=== PATIENT | male | born 1970 | race Caucasian/White ===

== ENCOUNTER 2020-05-09 10:02 | Emergency (ER) | payer OTHER ==
[~2020-05-09] VITALS: Ht 175.3 cm; Wt 181.8 kg
[2020-05-09 10:18] VITALS: BP 116/95; Ht 175.3 cm; Wt 181.8 kg
[2020-05-09] MEDS ORDERED: OMEPRAZOLE20 M1 (10:21)
[2020-05-09] MEDS ORDERED: METFORMIN HCL500 M1 (10:21)
[2020-05-09] MEDS ORDERED: NEURONTIN 300300 MG (10:21)
[2020-05-09] MEDS ORDERED: TENORMIN25 MG (10:21)
[2020-05-09] MEDS ORDERED: HYDROCHLOROTH12.5 M1 (10:21)
[2020-05-09] MEDS ORDERED: PRINIVIL20 MG (10:21)
[2020-05-09] MEDS ORDERED: KEFLEX500 MG PO (10:53)
[2020-05-09] MEDS ORDERED: NAPROSYN500 MG PO (10:53)
[2020-05-09] MEDS ORDERED: BACLOFEN10 MG PO (10:53)
== END 2020-05-09 13:23 | disposition home or self-care (01) ==
LOC: D.ER 10:02
DX: S80.212A Abrasion, left knee, initial encounter (principal); S90.812A Abrasion, left foot, initial encounter; S39.012A Strain of muscle, fascia and tendon of lower back, initial encounter; V89.2XXA Person injured in unspecified motor-vehicle accident, traffic, initial encounter; Y93.9 Activity, unspecified; Y92.9 Unspecified place or not applicable; E11.9 Type 2 diabetes mellitus without complications; I10 Essential (primary) hypertension; Z79.84 Long term (current) use of oral hypoglycemic drugs